=== PATIENT | female | born 2000 | race Caucasian/White ===

== ENCOUNTER 2021-11-03 04:22 | Emergency (ER) | payer OTHER ==
[~2021-11-03] VITALS: Ht 157.5 cm; Wt 52.2 kg
[~2021-11-03 04:22] MED LIST: FOLIC ACID0.4 MG
== END 2021-11-03 12:38 | disposition home or self-care (01) ==
LOC: ER 04:22
DX: O44.22 Partial placenta previa NOS or without hemorrhage, second trimester (principal); O26.892 Other specified pregnancy related conditions, second trimester; R10.2 Pelvic and perineal pain; Z3A.17 17 weeks gestation of pregnancy

== ENCOUNTER 2022-01-26 11:12 | Outpatient (CLI) | payer OTHER | END 2022-01-26 15:11 | disposition home or self-care (01) | LOC: OBS/DEL 11:12 | PROVIDERS: ATTEND Obstetrics & Gynecology | DX: O26.893 Other specified pregnancy related conditions, third trimester (principal); Z3A.28 28 weeks gestation of pregnancy ==

== ENCOUNTER 2022-02-24 20:28 | Inpatient (IN) | payer OTHER ==
[~2022-02-24] VITALS: Ht 154.9 cm; Wt 57.2 kg
[2022-02-24] MEDS ORDERED: PRENATAL CAPLE1 EAC1 PO (23:06)
== END 2022-03-02 17:18 | disposition home or self-care (01) | DRG 833 ==
LOC: OBS/DEL 20:28 → LDR 02-25 09:00 → OB/GYN 02-25 09:00
PROVIDERS: ADMIT Obstetrics & Gynecology; ATTEND Obstetrics & Gynecology
PROC: BU4CZZZ Ultrasonography of Uterus and Ovaries (ICD-10-PCS; 2022-02-24)
PROC: BY4FZZZ Ultrasonography of Third Trimester, Single Fetus (ICD-10-PCS; 2022-02-24)
PROC: 4A1HXCZ Monitoring of Products of Conception, Cardiac Rate, External Approach (ICD-10-PCS; principal; 2022-02-25)
DX: O47.03 False labor before 37 completed weeks of gestation, third trimester (principal); Z20.822 Contact with and (suspected) exposure to COVID-19; Z3A.33 33 weeks gestation of pregnancy

== ENCOUNTER 2022-03-19 23:15 | Outpatient (CLI) | payer OTHER ==
[~2022-03-19 23:15] MED LIST changes: +PRENATAL CAPLE1 EAC1 PO
== END 2022-03-20 20:13 | disposition home or self-care (01) ==
LOC: OBS/DEL 23:15
PROVIDERS: ATTEND Obstetrics & Gynecology
DX: E04.1 Nontoxic single thyroid nodule (principal)

== ENCOUNTER 2022-04-03 19:11 | Inpatient (IN) | payer OTHER ==
[~2022-04-03] VITALS: Ht 154.9 cm; Wt 59.9 kg
[2022-04-03] MEDS ORDERED: PRENATAL + DHA1 EAC1 (19:32)
== END 2022-04-04 14:48 | disposition home or self-care (01) | DRG 833 ==
LOC: LDR 19:11
PROVIDERS: ADMIT Obstetrics & Gynecology; ATTEND Obstetrics & Gynecology
PROC: 4A1HXCZ Monitoring of Products of Conception, Cardiac Rate, External Approach (ICD-10-PCS; principal; 2022-04-03)
DX: O47.1 False labor at or after 37 completed weeks of gestation (principal); Z3A.38 38 weeks gestation of pregnancy; Z20.822 Contact with and (suspected) exposure to COVID-19

== ENCOUNTER 2022-04-09 07:43 | Inpatient (IN) | payer OTHER ==
[~2022-04-09] VITALS: Ht 154.9 cm; Wt 59.9 kg
[~2022-04-09 07:43] MED LIST changes: +PRENATAL + DHA1 EAC1
[2022-04-09] MEDS ORDERED: PRENATAL + DHA1 EAC1 (09:55)
== END 2022-04-11 15:55 | disposition home or self-care (01) | DRG 807 ==
LOC: OB/GYN 07:43 → LDR 07:43 → OB/GYN 19:32
PROVIDERS: ADMIT Obstetrics & Gynecology; ATTEND Obstetrics & Gynecology
PROC: 10E0XZZ Delivery of Products of Conception, External Approach (ICD-10-PCS; principal; 2022-04-09)
PROC: 0KQM0ZZ Repair Perineum Muscle, Open Approach (ICD-10-PCS; 2022-04-09)
PROC: 4A1HXCZ Monitoring of Products of Conception, Cardiac Rate, External Approach (ICD-10-PCS; 2022-04-09)
DX: O70.1 Second degree perineal laceration during delivery (principal); Z37.0 Single live birth; O99.820 Streptococcus B carrier state complicating pregnancy; Z3A.39 39 weeks gestation of pregnancy